=== PATIENT | female | born 1995 | race Caucasian/White ===

== ENCOUNTER 2016-12-08 11:25 | Emergency (ER) | payer OTHER ==
[~2016-12-08] VITALS: Ht 157.5 cm; Wt 113.4 kg
[2016-12-08 12:08] VITALS: BP_SYST 143
--- NOTE | 2016-12-08 12:15 | NUR ---
Patient to ER bed 7 to gown for evaluation. Side rails up. Report given to Claritza CHANG.
--- NOTE | 2016-12-08 12:20 | NUR ---
dr. cunningham at bedside examining the pt.
--- NOTE | 2016-12-08 12:30 | NUR ---
pt. to the ER AAOx 4 states that she woke up with left red eye watery discharge pain 5/10, c/o irritation and swelling at site, states feeling like " something is in her eye, denies any other complaints
[2016-12-08] MEDS ORDERED: IBUPROFEN 800 MG TABLET PO ONE (12:45)
[2016-12-08] MEDS ORDERED: ERYTHROMYCIN 0.5% EYE OINT 3.5 GM OP ONE (12:45)
[2016-12-08 13:15] VITALS: BP_SYST 121
--- NOTE | 2016-12-08 13:15 | NUR ---
Patient given written and verbal discharge instructions and verbalizes understanding. ER MD dr. cunningham discussed with patient the results and treatment provided. Patient in stable condition. ID arm band removed. Rx of motrin, keflex, erythromycin given. Patient educated on pain management and to follow up with PMD. Pain Scale 0/10 Opportunity for questions provided and answered.
[2016-12-08] MEDS ORDERED: DIPHENHYDRAMINE INJ 50 MG/ML VIAL ONE (13:24)
[2016-12-08] MEDS ORDERED: LORazepam 2 MG/ML VIAL (FOR ER USE) ONE (13:25)
== END 2016-12-08 13:15 | disposition home or self-care (01) ==
LOC: SED 11:25
DX: H01.006 Unspecified blepharitis left eye, unspecified eyelid (principal)
CPT/HCPCS: 99283; J1200; J2060